=== PATIENT | female | born 1935 | race Caucasian/White ===

== ENCOUNTER 2022-04-22 14:34 | Day surgery (SDCO) | payer MEDICARE ==
[~2022-04-22] VITALS: Ht 167.6 cm; Wt 69.1 kg
[~2022-04-22 14:34] MED LIST: ALEVE220 MG PO; ASPIRIN CHEWABL81 MG PO; BACLOFEN 10MG T10 MG PO; CEFDINIR300 MG PO; FEOSOL325 MG PO; LEXAPRO 10MG TA10 MG PO; LIPITOR40 MG PO; MOBIC7.5 MG PO; NORVASC5 MG PO; PERCOCET 5-3251 EACH PO; PRAVACHOL40 MG PO; SENNA-TIME S T1 EACH PO; SYNTHROID50 MCG PO; XARELTO10 MG PO
[2022-04-22 16:04] LABS: BASOPHIL 0.2 % (0-2); EOSINOPHIL 0 % (0-7); HCT 39.9 % (37.0-47.0); HGB 13.1 g/dl (12.5-16.0); LYMPHOCYTE 3.3 % (15-48); MCH 29.8 pg (25.0-31.0); MCHC 32.8 g/dL (32.0-36.0); MCV 90.9 fL (78.0-100.0); MONOCYTE 4.7 % (0-12); MPV 9.4 fL (6.0-9.5); NEUTROPHIL 91.3 % (41-80); NRBC 0; PLT 249 K/uL (150-400); RBC 4.39 M/uL (4.20-5.40); RDW 15.1 % (11.5-14.0)
[2022-04-22 16:08] LABS: WBC 17.5 K/uL (4.0-10.5)
[2022-04-22 16:15] LABS: BUN/CREAT RATIO (CALC) 28.6 RATIO; CREATININE 0.77 mg/dL (0.51-0.95); POTASSIUM 3.6 mmol/L (3.5-5.1)
[2022-04-22 17:32] LABS: BILIRUBIN 2+ mg/dL (NEGATIVE); BLOOD TRACE-INTACT Ery/uL (NEGATIVE); CLARITY CLEAR (CLEAR); COLOR YELLOW (YELLOW); GLUCOSE (U) NORMAL (NORMAL); LEUKOCYTES 2+ Leu/uL (NEGATIVE); NITRITE POSITIVE (NEGATIVE); PROTEIN 2+ mg/dL (NEGATIVE); SPECIFIC GRAVITY >=1.030 (1.001-1.030)
[2022-04-22 17:46] LABS: URINARY WBC 20-50
[2022-04-22 17:47] LABS: AMORPHOUS URATES CRYSTALS MODERATE; BACTERIA 4+
[2022-04-22 17:51] LABS: LACTIC ACID 1.5 mmol/L (0.4-1.9)
[2022-04-22] MEDS ORDERED: CLARITIN10 MG PO (23:06)
[2022-04-22] MEDS ORDERED: ARICEPT10 MG PO (23:06)
[2022-04-22] MEDS ORDERED: PRILOSEC20 MG PO (23:07)
[2022-04-23 06:25] LABS: BASOPHIL 0.7 % (0-2); EOSINOPHIL 0.9 % (0-7); HCT 33.7 % (37.0-47.0); LYMPHOCYTE 12.5 % (15-48); MCH 29.6 pg (25.0-31.0); MCHC 32.6 g/dL (32.0-36.0); MCV 90.6 fL (78.0-100.0); MONOCYTE 9.3 % (0-12); MPV 9.5 fL (6.0-9.5); NEUTROPHIL 76.2 % (41-80); NRBC 0; PLT 236 K/uL (150-400); RBC 3.72 M/uL (4.20-5.40); RDW 15.4 % (11.5-14.0); WBC 9.1 K/uL (4.0-10.5)
[2022-04-23 06:47] LABS: ALBUMIN 2.6 g/dL (3.4-5.0); BILIRUBIN - TOTAL 0.9 mg/dL (0.2-1.0); BUN/CREAT RATIO (CALC) 30.4 RATIO; CREATININE 0.69 mg/dL (0.51-0.95); GLOBULIN (CALCULATION) 3.2 g/dL; MAGNESIUM 1.7 mg/dL (1.8-2.4); TOTAL PROTEIN 5.8 g/dL (6.4-8.2)
[2022-04-24] MEDS ORDERED: BACTRIM DS TAB1 EACH PO (11:55)
--- NOTE | 2022-04-24 15:06 | NUR ---
04/24 Ms. Lundy lives at [facility]. She has an emergency alert system, rollator, scooter, wc, and s. seat. Her neighborbor assit with laundry and cleaning. Family provides meals and pt microwaves. This swer met with Ms. Lundy and her son to discuss NH vs HH. After Therapy recommendations were reviewed, they decided on [facility]. - Pt was educated to [facility]. She was not interested. - A referral was made to [facility]. They were educated to [facility].
--- NOTE | 2022-04-24 18:22 | NUR ---
1600 PT D/C TO HOME WITH HER SON,MIDLINE REMOVED AND WAS IN STABLE CONDITION UPON D/C.[facility] And got herself into her sons truck [facility] will chacha to set up time to visit
== END 2022-04-24 16:30 | disposition home health service (06) ==
LOC: FER 14:34 → FTCU 19:38
PROVIDERS: Nurse Practitioner; Nurse Practitioner Family; ADMIT Family Medicine
DX: N39.0 Urinary tract infection, site not specified (principal); R53.1 Weakness; I10 Essential (primary) hypertension; E78.5 Hyperlipidemia, unspecified; E03.9 Hypothyroidism, unspecified; M19.90 Unspecified osteoarthritis, unspecified site; Z86.73 Personal history of transient ischemic attack (TIA), and cerebral infarction without residual deficits; Z20.822 Contact with and (suspected) exposure to COVID-19; Z85.840 Personal history of malignant neoplasm of eye; Z79.82 Long term (current) use of aspirin
CPT/HCPCS: 36415; 80048; 80053; 81001; 83605; 83735; 84145; 85025; 87040; 87088; 94010; 94760; 97162; 97166; 97530-GP; G0378; J0696; J1650; J7030; U0002